=== PATIENT | male | born 1990 | race Caucasian/White ===

== ENCOUNTER 2023-05-14 17:40 | Emergency (ER) | payer OTHER, SELFPAY ==
[2023-05-14 17:42] VITALS: BP 156/109
--- NOTE | 2023-05-14 18:32 | ED.GENMED ---
History of Present Illness
General
Chief Complaint: Blood Pressure Problem
Source: patient
Exam Limitations: none
Time Seen by Provider: 05/14/23 18:12
Travel History
Have you had any contact with someone who has COVID-19?: No
Do you have any symptoms of coronavirus? Fever > 100 degrees, chills, cough, shortness of breath, sore throat, loss of taste or smell, muscle aches, or headache?: No
History of Present Illness
History of Present Illness:
This is a 32 year old male that comes in with c/o just feeling off. States that he decided to check his BP and it was 138/98 in the right arm and 155/103 in the left arm. States that he feels flushed. States that he called his PCP and was told to
come to ER. States that he was SOB when he was snow blowing and he felt lightheaded. States that he thought it was just because he didn't eat so after eating he felt better. States that he also has this feeling of fluid rushing in his chest.
States that he use to take Lisinopril/HCTZ but he was taken off of this and started on Losartan 40mg daily. States that this doesn't seem to work as well. Denies any fever, chills, chest pain, abd pain, nausea, vomiting, diarrhea, headache,
dizziness, urinary burning.
Past History
Past History
ED Past Medical History: HTN and Other (History of COVID-19, Nephrolithiasis, gallbladder never developed, Splenomegaly, elevated LFTs, Exzema, Alopecia)
ED Past Surgical History: Other (Gynecomastia Surgery, [place] Teeth Extraction/Oral Surgery)
Social History
Tobacco: Former smoker (Occasional Cigars)
Alcohol: Occasional
Drug: None
Personal:
Living: with family
Employment: Employed
Family History
Family History: Hypertension (Mother/Father)
Review of Systems
Review of Systems
All Other Systems: ROS reviewed and negative except as documented in HPI and ROS
Constitutional: Reports no symptoms; Denies fever or chills
EENT: Reports no symptoms
Respiratory: Reports trouble breathing; Denies cough
Cardiac: Reports no symptoms; Denies chest pain
ABD/GI: Reports no symptoms; Denies abdominal pain, nausea, vomiting or diarrhea
: Reports no symptoms; Denies dysuria, frequency or urgency
Musculoskeletal: Reports no symptoms
Skin: Reports no symptoms
Neurological: Reports no symptoms; Denies dizzy or headache
Psychiatric: Reports no symptoms
Phy Exam
General Physical Exam
General Presentation: no apparent distress
General age: appears stated age
General Skin: warm and dry
General Habitus: obese
General Mental: alert
General Hydration: appears well hydrated
ENT Exam
ENT Exam: TM's normal, pharynx normal and neck supple
Eye Exam
Eye Exam: EOMI
Cardiovascular Exam
Cardiovascular Exam: regular rate/rhythm, no edema, no murmur and normal peripheral pulses
Pulmonary Exam
Pulmonary Exam: lungs clear, no respiratory distress, no rales, chest non tender, no crackles, no rhonchi, no wheezing and no cough
Gastrointestinal Exam
Gastrointestinal Exam: non tender, soft, no organomegaly, no pulsatile mass, non distended and other (Obese, Hypoactive bowel sounds)
Musculoskeletal Exam
Musculoskeletal Exam: full ROM and no edema
Skin Exam
Skin Exam: normal color, warm/dry, no rash and no petechia
Psychiatric Exam
Psychiatric Exam: normal mood/affect
Course
Orders/Labs/Results
Orders:
Orders
05/14/23 17:47
Electrocardiogram (*1) Urgent
Reason for Study: Chest Pain
EKG- Treatment ONCE
05/14/23 18:32
CR Chest - 2 Views Urgent
Comment:
Reason For Exam: SOB
05/14/23 18:38
Complete Blood Count/With Diff Urgent
Comprehensive Metabolic Panel Urgent
Troponin I Urgent
05/14/23 20:00
Hydrochlorothiazide [Oretic] 12.5 mg PO NOW ONE
Abnormal Lab Results
05/14/23
18:38
RBC 4.66 L 10^6/uL
(4.70-6.10)
Hct 38.7 L %
(39.0-52.0)
Absolute Monos (auto) 0.7 H 10^3/uL
(0.1-0.6)
Monocytes % 13.2 H %
(1.7-9.3)
Sodium 134 L mmol/L
(135-145)
Glucose 104 H mg/dl
(70-99)
ALT 85 H U/L
(0-50)
05/14/23 18:38
05/14/23 18:38
Vital Signs
Initial and Last Documented VS:
Initial Vital Signs
Temp Pulse Resp BP Pulse Ox
98.9 F 112 20 156/109 99
05/14/23 17:42 05/14/23 17:42 05/14/23 17:42 05/14/23 17:42 05/14/23 17:42
Last Documented Vital Signs
Temp Pulse Resp BP Pulse Ox
98.9 F 112 20 156/109 99
05/14/23 17:42 05/14/23 17:42 05/14/23 17:42 05/14/23 17:42 05/14/23 17:42
MDM/Problems Addressed
Differential Diagnosis Includes:
Hypertension,
MDM/Problems Addressed:
This is a 32 year old male that comes in with c/o just feeling off and Hypertension. States that he felt off today so he took his BP. States that his right arm was lower then his left. Momo called the PCP and was told to come to the ER for
evaluation.
Will check labs and get Chest X-ray.
Back into see patient. Explained that his ALT is mildly elevated. Patient Troponin is normal along with the chest x-ray. Patient was given HCTZ and will send a script to his Pharmacy. Patient to follow up with the family doctor. Patient encouraged
to watch his sodium intake and also explained that if he looses a little weight this will help lower his BP. Patient to return with any concerns.
Chronic conditions affecting care: HTN
Acute Exacerbation and/or Progression of Chronic Illness: HTN
*Radiology
Radiology exam reviewed: preliminary read by ED provider (Chest- Negative for active disease. )
*Pulse Oximetry
Patient hypoxic: no
*EKG
Interpreted by ED Provider?: Yes
Heart Rate: 103
Rate: tachycardiac
Rhythm: sinus
[place]: normal axis
Interval: normal interval
QRS Pattern: normal QRS
Ischemia: no ischemia
*[employer] Interpretation
Rate: tachycardiac
Heart Rate: 112
Rhythm: sinus
*Critical Care Note
Total Time (30-74mins, 75-104mins- exclusive of procedures): Not Applicable
ED Attending Note
-
Portions of this chart may have been created with voice recognition software.� Occasional wrong word or��sound alike� substitutions may have occurred due to the inherent limitations of voice recognition software.
Discharge Plan
Departure
Patient Disposition: Home (Routine Discharge)
Date of Disposition: 05/14/23
Time of Disposition: 20:20
Patient with high blood pressure during this ER visit?: Yes
Condition: Good
Covid-19: Not Applicable
Discharge Problem:
Hypertension
Instructions: High Blood Pressure (DC), BLOOD PRESSURE
Prescriptions:
New
hydrochlorothiazide 12.5 mg tablet
12.5 mg PO DAILY Qty: 15 0RF
No Action
ibuprofen [Advil] 200 MG tablet
800 mg PO PRN PRN (Reason: pain/fever)
acetaminophen [Tylenol Extra Strength] 500 MG tablet
500 mg PO Q4HPRN PRN (Reason: pain)
levofloxacin 500 MG tablet
500 mg PO DAILY Qty: 6 0RF
Referrals:
John Adkins MD [Family Provider] - Follow up in 2-3 days
Activity Restrictions/Additional Instructions:
As discussed, your blood work shows that your ALT is mildly elevated. Your Chest x-ray and ECG are normal. Please increase your water intake to 8-8oz glasses daily. Watch your sodium intake. You may also want to loose some weight and exercise to
help bring down your blood pressure. You have also been given a prescription for Hydrochlorothiazide. This will help lower your blood pressure. Please call your family doctor and follow up with him in the next 2-3 days for further evaluation. IF
YOU HAVE ANY OTHER CONCERNS PLEASE RETURN TO THE EMERGENCY ROOM.
Interventions
Interventions:
*Risk Screen - Suicide Last Done: 05/14/23 17:42
*General Assessment Last Done: 05/14/23 17:42
*Neglect/Abuse Screening Last Done: 05/14/23 17:42
ED- Fall Risk Assessment Last Done: 05/14/23 18:53
ED- Cardiac Assessment Last Done: 05/14/23 18:53
ED- Neurological Assessment Last Done: 05/14/23 18:53
ED- Pulmonary Assessment Last Done: 05/14/23 18:53
[2023-05-14 18:55] LABS: % Eosinophils 1.6 % (0-6); % Immature Granulocytes 0.4 % (0-0.5); % Lymphocytes 22.5 % (20.5-51.1); % Monocytes 13.2 % (1.7-9.3); % Neutrophils 62.3 % (42.2-75.2); Absolute Eosinophils 0.1 10^3/uL (0-0.7); Absolute Lymphocytes 1.3 10^3/uL (1.2-3.4); Absolute Monocytes 0.7 10^3/uL (0.1-0.6); Absolute Neutrophils 3.5 10^3/uL (1.4-6.5); Hematocrit 38.7 % (39.0-52.0); Hemoglobin 13.5 g/dL (13.0-18.0); Mean Corp Hgb Conc. 34.9 g/dL (33.0-37.0); Mean Platelet Volume 9.7 fL (7.4-10.4); Nucleated Red Blood Cells % 0 % (-); Platelet Count 175 10^3/uL (130-400); Red Blood Cell Count 4.66 10^6/uL (4.70-6.10); Red Cell Dist. Width 12.7 % (11.5-14.5); White Blood Cell Count 5.6 10^3/uL (4.8-10.8)
[2023-05-14 19:06] LABS: ALT (SGPT) 85 U/L (0-50); AST (SGOT) 46 U/L (17-59); Albumin 4.5 g/dl (3.5-5.0); Alkaline Phosphatase 77 U/L (38-126); Blood Urea Nitrogen 13 mg/dl (9-20); Calcium 8.9 mg/dl (8.4-10.2); Carbon Dioxide 30 mmol/L (22-30); Chloride 101 mmol/L (98-107); Glucose 104 mg/dl (70-99); Sodium 134 mmol/L (135-145); Total Bilirubin 0.8 mg/dl (0.2-1.3); Total Protein 6.8 g/dl (6.3-8.2); eGFR > 60.00
[2023-05-14 19:18] LABS: Troponin I < 0.012 ng/ml
[2023-05-14] MEDS: ORETIC 12.5 MG PO (20:42)
[2023-05-14 20:49] VITALS: BP 143/89
== END 2023-05-14 20:51 | disposition home or self-care (01) ==
LOC: EMR 17:40
PROVIDERS: Clinical Nurse Specialist Family Health; EMERGENCY PHYSICIAN Student in an Organized Health Care Education/Training Program; FAMILY PHYSICIAN Family Medicine
DX: I10 Essential (primary) hypertension (principal); Z87.891 Personal history of nicotine dependence
CPT/HCPCS: 99285; 71046; 80053; 84484; 85025; 93005

== ENCOUNTER 2024-01-31 07:55 | Emergency (ER) | payer OTHER, SELFPAY ==
[2024-01-31 07:58] VITALS: BP 141/80
--- NOTE | 2024-01-31 08:13 | ED.GENMED ---
History of Present Illness
General
Chief Complaint: Abdominal Pain
Source: patient
Exam Limitations: none
Time Seen by Provider: 01/31/24 08:04
History of Present Illness
History of Present Illness:
33-year-old male presents with left inguinal pain that radiates to the umbilicus and into the left testicle. He denies any obvious swelling or bulging. The pain is severe at times. He notes increased frequency of urination. He denies any
hematuria. No known injury. He was seen by the family doctor yesterday and advised to get an ultrasound of his abdomen and groin for potential hernia. He was also concerned about torsion. He has a history of kidney stones and some of the pain
also feels similar to that.
Past History
Past History
ED Past Medical History: HTN and Other (History of COVID-19, Nephrolithiasis, gallbladder never developed, Splenomegaly, elevated LFTs, Exzema, Alopecia)
ED Past Surgical History: Other (Gynecomastia Surgery, [place] Teeth Extraction/Oral Surgery)
Social History
Tobacco: Former smoker (Occasional Cigars)
Alcohol: Occasional
Drug: None
Personal:
Living: with family
Employment: Employed
Family History
Family History: Hypertension (Mother/Father)
Phy Exam
Physical Exam
Physical Exam:
General: Well-appearing male no acute respiratory distress
HEENT: Normocephalic atraumatic
Heart: Regular rate and rhythm no murmurs
Lungs: Clear no wheeze
Abdomen soft tender to the suprapubic region no obvious bulging no guarding or rebound. exam shows circumcised male. Slight left inguinal tenderness. Slight left testicular tenderness no obvious swelling or bulge
Extremities: No cyanosis
Course
Orders/Labs/Results
Orders:
Orders
01/31/24 08:12
US Scrotum Urgent
Comment:
Reason For Exam: left testicular pain
01/31/24 08:33
Complete Blood Count/With Diff Urgent
Comprehensive Metabolic Panel Urgent
Urinalysis Reflex To Culture Urgent
Date Specimen was Collected: 01/31/24
Time Specimen was Collected: 08:19
01/31/24 10:58
CT Abd/pelvis W Iv Cont Urgent
Comment:
Reason For Exam: lower abdominal pain
Abnormal Lab Results
01/31/24
08:33
RBC 4.69 L 10^6/uL
(4.70-6.10)
Hct 38.5 L %
(39.0-52.0)
Monocytes % 10.7 H %
(1.7-9.3)
Carbon Dioxide 31 H mmol/L
(22-30)
ALT 104 H U/L
(0-50)
01/31/24 08:33
01/31/24 08:33
Vital Signs
Initial and Last Documented VS:
Initial Vital Signs
Temp Pulse Resp BP Pulse Ox
98.2 F 94 16 141/80 98
01/31/24 07:58 01/31/24 07:58 01/31/24 07:58 01/31/24 07:58 01/31/24 07:58
Last Documented Vital Signs
Temp Pulse Resp BP Pulse Ox
98.5 F 86 20 131/72 99
01/31/24 12:09 01/31/24 12:09 01/31/24 12:09 01/31/24 12:09 01/31/24 12:09
MDM/Problems Addressed
Differential Diagnosis Includes:
Left inguinal testicular and abdominal discomfort. Differential could include testicular torsion versus inguinal hernia versus renal colic versus UTI
Will check labs. Start with ultrasound of scrotum to evaluate for torsion if negative consider CT.
*Critical Care Note
Total Time (30-74mins, 75-104mins- exclusive of procedures): Not Applicable
Update Note
Update Note:
Ultrasound scrotum negative for acute finding. This was followed by CT of the abdomen to evaluate for diverticulitis versus hernia versus renal colic. CT scan was unremarkable other than for a periumbilical fat-containing hernia. I do not suspect
this would be the source of his lower abdominal and testicular symptoms. There may be an intermittent inguinal hernia not being caught on imaging today. Recommend avoidance of heavy lifting. Recommended follow-up with general surgery. Stable for
discharge
ED Attending Note
-
Portions of this chart may have been created with voice recognition software.� Occasional wrong word or��sound alike� substitutions may have occurred due to the inherent limitations of voice recognition software.
Discharge Plan
Departure
Patient Disposition: Home (Routine Discharge)
Date of Disposition: 01/31/24
Time of Disposition: 13:01
Patient with high blood pressure during this ER visit?: No
Discharge Problem:
Abdominal pain
Instructions: Abdominal Pain
Prescriptions:
No Action
ibuprofen [Advil] 200 MG tablet
800 mg PO PRN PRN (Reason: pain/fever)
acetaminophen [Tylenol Extra Strength] 500 MG tablet
500 mg PO Q4HPRN PRN (Reason: pain)
hydrochlorothiazide 12.5 mg tablet
12.5 mg PO DAILY Qty: 15 0RF
Referrals:
John Adkins MD [Family Provider] -
Activity Restrictions/Additional Instructions:
Avoid heavy lifting. Keep your bowel movements soft. Return if needed otherwise follow-up with your doctor or general surgery
Interventions
Interventions:
*Risk Screen - Suicide Last Done: 01/31/24 07:58
*General Assessment Last Done: 01/31/24 07:58
*Neglect/Abuse Screening Last Done: 01/31/24 07:58
ED- Fall Risk Assessment Last Done: 01/31/24 08:36
*ED COVID-19 Vaccine History Last Done: 01/31/24 08:36
[id number]-[id number] Assessment Last Done: 01/31/24 08:36
Discharge Date and Time
Print Language: ROMANIAN
[2024-01-31 08:36] VITALS: BP 136/71; BMI 27.4
[2024-01-31 08:42] LABS: % Eosinophils 1.3 % (0-6); % Immature Granulocytes 0.2 % (0-0.5); % Monocytes 10.7 % (1.7-9.3); % Neutrophils 62.8 % (42.2-75.2); Absolute Eosinophils 0.1 10^3/uL (0-0.7); Absolute Lymphocytes 1.3 10^3/uL (1.2-3.4); Absolute Monocytes 0.6 10^3/uL (0.1-0.6); Absolute Neutrophils 3.4 10^3/uL (1.4-6.5); Hematocrit 38.5 % (39.0-52.0); Hemoglobin 13.3 g/dL (13.0-18.0); Mean Corp Hgb Conc. 34.5 g/dL (33.0-37.0); Mean Corpuscular Hgb 28.4 pg (27.0-31.0); Mean Corpuscular Volume 82.1 fL (80.0-94.0); Mean Platelet Volume 9.1 fL (7.4-10.4); Nucleated Red Blood Cells % 0 % (-); Platelet Count 170 10^3/uL (130-400); Red Blood Cell Count 4.69 10^6/uL (4.70-6.10); Red Cell Dist. Width 12.9 % (11.5-14.5); White Blood Cell Count 5.3 10^3/uL (4.8-10.8)
[2024-01-31 08:55] LABS: ALT (SGPT) 104 U/L (0-50); AST (SGOT) 53 U/L (17-59); Albumin 4.6 g/dl (3.5-5.0); Alkaline Phosphatase 62 U/L (38-126); Blood Urea Nitrogen 18 mg/dl (9-20); Calcium 9.7 mg/dl (8.4-10.2); Carbon Dioxide 31 mmol/L (22-30); Chloride 101 mmol/L (98-107); Estimated Creatinine Clearance 84 ml/min; Glucose 96 mg/dl (70-99); Potassium 4.4 mmol/L (3.5-5.1); Sodium 142 mmol/L (135-145); Total Protein 6.7 g/dl (6.3-8.2); eGFR > 60.00
[2024-01-31 10:21] LABS: Urine Albumin Negative (Neg - Trace); Urine Bilirubin Negative (Negative); Urine Glucose Negative (Negative); Urine Ketone Negative (Negative); Urine Leukocyte Negative (Negative); Urine Nitrite Negative (Negative); Urine Occult Blood Negative (Negative); Urine Specific Gravity 1.015 (<1.030); Urine Urobilinogen Negative (Neg - 1+)
--- NOTE | 2024-01-31 10:48 | EDRN ---
the pt is resting in stretcher in the lowest position, side rails up x1, HOB elevated, call nunez within reach, no s/s of distress, the pt denies needing anything at this time, awaiting for provider to come back to the pts bedside, will continue to
monitor the pt closely
[2024-01-31 10:51] LABS: Urine Character Clear (Clear); Urine Color Yellow
[2024-01-31 12:09] VITALS: BP 131/72
== END 2024-01-31 13:20 | disposition home or self-care (01) ==
LOC: EMR 07:55
PROVIDERS: Physician Assistant; EMERGENCY PHYSICIAN Emergency Medicine; FAMILY PHYSICIAN Family Medicine
DX: K42.9 Umbilical hernia without obstruction or gangrene (principal); R10.32 Left lower quadrant pain; N50.812 Left testicular pain; I10 Essential (primary) hypertension; Z87.891 Personal history of nicotine dependence
CPT/HCPCS: 99284; 74177; 76870; 80053; 81003; 85025; 93976; Q9967

== ENCOUNTER → 2024-10-20 16:04 | Outpatient (REF) | payer OTHER, SELFPAY | LOC: MRI 3T 16:04 | PROVIDERS: ATTENDING PHYSICIAN Student in an Organized Health Care Education/Training Program; FAMILY PHYSICIAN Physician Assistant Medical | DX: M25.572 Pain in left ankle and joints of left foot (principal) | CPT/HCPCS: 73721 ==

== ENCOUNTER 2025-01-27 18:33 | Outpatient (RCR) | payer OTHER, SELFPAY | END 2025-01-27 23:59 | disposition home or self-care (01) | LOC: RPT 18:33 | PROVIDERS: ATTENDING PHYSICIAN Student in an Organized Health Care Education/Training Program; FAMILY PHYSICIAN Physician Assistant Medical | DX: Z47.89 Encounter for other orthopedic aftercare (principal); M67.02 Short Achilles tendon (acquired), left ankle; Z73.6 Limitation of activities due to disability; R26.2 Difficulty in walking, not elsewhere classified; M62.81 Muscle weakness (generalized); R26.89 Other abnormalities of gait and mobility | CPT/HCPCS: 97110; 97116; 97140; 97162 ==

== ENCOUNTER 2025-02-22 14:14 | Outpatient (RCR) | payer OTHER, SELFPAY | END 2025-02-22 23:59 | disposition home or self-care (01) | LOC: RPT 14:14 | PROVIDERS: ATTENDING PHYSICIAN Student in an Organized Health Care Education/Training Program; FAMILY PHYSICIAN Physician Assistant Medical | DX: Z47.89 Encounter for other orthopedic aftercare (principal); M67.02 Short Achilles tendon (acquired), left ankle; Z73.6 Limitation of activities due to disability; R26.2 Difficulty in walking, not elsewhere classified; M62.81 Muscle weakness (generalized); R26.89 Other abnormalities of gait and mobility | CPT/HCPCS: 97110; 97116; 97140; 97530 ==

== ENCOUNTER 2025-03-17 18:48 | Outpatient (RCR) | payer OTHER, SELFPAY | END 2025-03-17 23:59 | disposition home or self-care (01) | LOC: RPT 18:48 | PROVIDERS: ATTENDING PHYSICIAN Student in an Organized Health Care Education/Training Program; FAMILY PHYSICIAN Physician Assistant Medical | DX: Z47.89 Encounter for other orthopedic aftercare (principal); M67.02 Short Achilles tendon (acquired), left ankle; Z73.6 Limitation of activities due to disability; R26.2 Difficulty in walking, not elsewhere classified; M62.81 Muscle weakness (generalized); R26.89 Other abnormalities of gait and mobility | CPT/HCPCS: 97110; 97112; 97116; 97140; 97530 ==